=== PATIENT | male | born 1990 | race Two or more races ===

== ENCOUNTER 2016-10-13 22:26 | Emergency (ER) | payer OTHER ==
[~2016-10-13] VITALS: Ht 177.8 cm; Wt 75.0 kg
[2016-10-13 23:25] LABS: BASOPHIL COUNT 0.1 K/uL (0-0.1); EOSINOPHIL (%) 0.5 % (0-5); EOSINOPHIL COUNT 0.1 K/uL (0-0.3); HEMATOCRIT 42.3 % (38.0-50.0); IMMATURE GRANULOCYTE (%) 0.5 % (0.0-0.7); IMMATURE GRANULOCYTE COUNT 0.1 K/uL; INSTRUMENT ABS NEUTROPHIL CT 14.7 K/uL; LYMPHOCYTE COUNT 1.4 K/uL (1.0-2.8); MCH 30.8 PG (29.0-34.0); MCHC 34.8 G/DL (30.0-36.0); MCV 88.7 FL (86-99); MEAN PLAT.VOLUME 9.6 uM^3 (9.0-12.4); MONOCYTE (%) 6.4 % (3-12); MONOCYTE COUNT 1.1 K/uL (0-0.8); NEUTROPHIL (%) 84.4 % (45-76); NEUTROPHIL COUNT 14.7 K/uL (1.8-6.4); PLATELET COUNT 252 K/uL (156-360); RBC DIS.WIDTH-CV 11.9 % (11.8-14.6); RBC DIS.WIDTH-SD 38.1 % (39-53); RED BLOOD COUNT 4.77 M/uL (4.00-5.50); WHITE BLOOD COUNT 17.4 K/uL (4.1-10.2)
[2016-10-13 23:37] LABS: AMYLASE 51 IU/L (1-118); CHLORIDE 104 mEq/L (99-109); POTASSIUM 3.8 mEq/L (3.7-5.4); SODIUM 140 mEq/L (136-147)
[2016-10-13 23:39] LABS: GLUCOSE 99 mg/dL (70-99)
[2016-10-13 23:40] LABS: ANION GAP 10 MEQ/L (2-14)
[2016-10-13 23:42] LABS: GFR ESTIMATE (CALCULATED) > 59 mL/min/; SERUM ETHYL ALCOHOL < 10 mg/dL
[2016-10-13 23:43] LABS: UREA NITROGEN (BUN) 18 mg/dL (9-23)
[2016-10-13 23:45] LABS: LIPASE 18 U/L (1.0-51.0)
[2016-10-14] MEDS ORDERED: PERCOCET 5/31 TABLET PO (00:56)
[2016-10-14 01:00] VITALS: BP 119/72
== END 2016-10-14 01:08 ==
LOC: EME → EDBD 22:26 → EME 22:26 → TRA 22:26 → EME 22:26 → TRA 10-14 01:08
PROVIDERS: Emergency Medicine
DX: S00.83XA Contusion of other part of head, initial encounter (principal); Y04.2XXA Assault by strike against or bumped into by another person, initial encounter; Y92.149 Unspecified place in prison as the place of occurrence of the external cause; Z87.891 Personal history of nicotine dependence
CPT/HCPCS: 70450; 70486; 72125; 80048; 81003; 82150; 83690; 85025; 86900; 86901; 99281; 99284; G0480; J2270; J2405; J7030